=== PATIENT | female | born 1980 | race Caucasian/White ===

== ENCOUNTER 2016-12-13 06:06 | Inpatient (IN) | payer OTHER ==
[~2016-12-13] VITALS: Ht 152.4 cm; Wt 74.4 kg
[~2016-12-13 06:06] MED LIST: FOLI5VIA2 IJ; IBUP-2071 PO; PNV61CAP PO
[2016-12-13] MEDS ORDERED: RINGERS SOLUTION,LACTATED 1,000 ML IV ONE ×2 (06:09→08:09)
[2016-12-13] MEDS ORDERED: METOCLOPRAMIDE HCL 5 MG/ML 2 ML VIAL IVP ONE (06:15)
[2016-12-13] MEDS ORDERED: CITRIC ACID/SODIUM CITRATE 30 ML SOLUTION UDCUP PO ONE (06:15)
[2016-12-13 06:56] LABS: BASOPHILS % (AUTO) 0.2 % (0.0-2.0); EOSINOPHILS % (AUTO) 1.1 % (1.0-6.0); HEMATOCRIT 33.5 % (36-46); HEMOGLOBIN 11.2 g/dL (12.0-16.0); LYMPHOCYTES % (AUTO) 22.8 % (22.0-44.0); MEAN CORPUSCULAR HEMOGLOBIN 28.7 pg (26.0-34.0); MEAN CORPUSCULAR HGB CONC 33.5 G/dL (31.0-37.0); MEAN CORPUSCULAR VOLUME 86 fL (80-100); MONOCYTES # (AUTO) 0.8 K/uL (0.1-1.0); MONOCYTES % (AUTO) 8.8 % (2.0-9.0); NEUTROPHILS # (AUTO) 5.9 K/uL (1.8-7.7); NEUTROPHILS % (AUTO) 67.1 % (40.0-70.0); RED BLOOD CELL COUNT(AUTO) 3.91 MIL/uL (4.00-5.20); RED CELL DISTRIBUTION WIDTH 13.6 % (11.5-14.5); WHITE BLOOD COUNT (AUTO) 8.7 K/uL (4.5-11.0)
[2016-12-13 06:58] VITALS: BP 109/75
[2016-12-13] MEDS ORDERED: FentaNYL CITRATE-PF 100 MCG/2 ML VIAL ONE (07:01)
[2016-12-13] MEDS ORDERED: CeFAZolin 2 GM/DEXTROSE 50 ML IV ONE (07:01)
[2016-12-13] MEDS ORDERED: MORPHINE SULFATE/PF 0.5 MG/ML 10 ML AMP ONE (07:02)
[2016-12-13] MEDS ORDERED: FentaNYL CITRATE-PF 100 MCG/2 ML VIAL IVP PRN ×3 (07:15→09:00)
[2016-12-13] MEDS ORDERED: PROMETHAZINE HCL 12.5 MG in SODIUM CHLORIDE 0.9% 50 ML IV PRN (07:15)
[2016-12-13] MEDS ORDERED: ONDANSETRON HCL 4 MG/2 ML VIAL IVP PRN ×2 (07:15→09:00)
[2016-12-13] MEDS ORDERED: MEPERIDINE-PF 25 MG/ML SYRINGE IVP PRN (07:15)
[2016-12-13] MEDS ORDERED: DiphenhydrAMINE HCL 50 MG/ML VIAL IVP PRN ×2 (07:15→09:00)
[2016-12-13] MEDS ORDERED: NALBUPHINE HCL 10 MG/ML VIAL IVP PRN ×3 (07:15→09:00)
[2016-12-13] MEDS: OXYGEN THERAPY IH SCH ×2 (08:00→20:00)
[2016-12-13] MEDS ORDERED: NALOXONE HCL 0.4 MG/ML VIAL IVP PRN (09:00)
[2016-12-13] MEDS ORDERED: LANOLIN 7 GM OINTMENT TP PRN (09:00)
[2016-12-13] MEDS ORDERED: ACETAMINOPHEN/CODEINE 300-30 MG TABLET PO PRN (09:00)
[2016-12-13] MEDS ORDERED: DEXTROSE 5%-0.45% SODIUM CHL 1,000 ML IV ONE (10:30)
[2016-12-13] MEDS: DEXTROSE 5%-0.45% SODIUM CHL 1,000 ML IV SCH ×3 (10:34→21:39)
[2016-12-13] MEDS ORDERED: PNEUMOCOCCAL VACCINE POLYVALENT 0.5 ML VIAL [PPSV23] IM ONE (14:30)
[2016-12-13] MEDS: KETOROLAC TROMETHAMINE 30 MG/ML VIAL IVP SCH ×2 (15:26→21:35)
[2016-12-13] MEDS ORDERED: OXYGEN THERAPY IH SCH ×2 (20:00)
[2016-12-14] MEDS: DEXTROSE 5%-0.45% SODIUM CHL 1,000 ML IV SCH (01:44)
[2016-12-14] MEDS: IBUPROFEN 800 MG TABLET PO SCH ×3 (04:10→16:27)
[2016-12-14] MEDS ORDERED: PHENYLEPHRINE HCL 10 MG/ML VIAL IVP ONE (05:14)
[2016-12-14] MEDS ORDERED: ONDANSETRON HCL 4 MG/2 ML VIAL IVP ONE (05:14)
[2016-12-14] MEDS ORDERED: OXYTOCIN 10 UNITS/ML VIAL IM ONE (05:14)
[2016-12-14] MEDS ORDERED: EPHEDrine SULFATE 50 MG/ML VIAL IM ONE (05:14)
[2016-12-14] MEDS ORDERED: KETOROLAC TROMETHAMINE 60 MG/2 ML VIAL IM ONE (05:14)
[2016-12-14] MEDS ORDERED: 0.9% SODIUM CHLORIDE 10 ML VIAL IVP ONE (05:14)
[2016-12-14] MEDS ORDERED: DEXAMETHASONE SOD PHOS 4 MG/ML VIAL IVP ONE (05:14)
[2016-12-14] MEDS: MAGNESIUM HYDROXIDE SUSPENSION 30 ML UDCUP PO SCH ×3 (08:23→20:30)
[2016-12-14] MEDS: ACETAMINOPHEN/CODEINE 300-30 MG TABLET PO PRN ×2 (10:35→20:31)
[2016-12-15] MEDS: IBUPROFEN 800 MG TABLET PO SCH ×4 (00:21→17:37)
[2016-12-15] MEDS: ACETAMINOPHEN/CODEINE 300-30 MG TABLET PO PRN (03:38)
[2016-12-15] MEDS: MAGNESIUM HYDROXIDE SUSPENSION 30 ML UDCUP PO SCH ×2 (08:48→09:00)
[2016-12-16] MEDS: IBUPROFEN 800 MG TABLET PO SCH ×4 (00:08→11:37)
[2016-12-16] MEDS: ACETAMINOPHEN/CODEINE 300-30 MG TABLET PO PRN ×2 (05:03→08:46)
[2016-12-16] MEDS ORDERED: ACET1TAB12 PO (11:01)
[2016-12-16] MEDS ORDERED: IBUP-2070 PO (11:03)
[2016-12-16] MEDS ORDERED: DSS100 PO (11:04)
[2016-12-16] MEDS ORDERED: FERR-89 PO (11:05)
== END 2016-12-16 11:45 | disposition home or self-care (01) | DRG 766 ==
LOC: 4S 06:06 → PREOBSVTOIN 12-15 06:10
PROVIDERS: ADMIT Obstetrics & Gynecology; ATTEND Obstetrics & Gynecology
PROC: 10D00Z1 Extraction of Products of Conception, Low, Open Approach (ICD-10-PCS; principal; 2016-12-13)
PROC: 0UB70ZZ Excision of Bilateral Fallopian Tubes, Open Approach (ICD-10-PCS; 2016-12-13)
DX: O34.211 Maternal care for low transverse scar from previous cesarean delivery (principal); Z37.0 Single live birth; Z3A.39 39 weeks gestation of pregnancy
CPT/HCPCS: 86850; 86900; 86901; 87081; 88302; J0690; J1100; J1885; J2274; J2370; J2405; J2590; J2765; J3010; J3490